=== PATIENT | male | born 1960 | race Caucasian/White ===

== ENCOUNTER 2024-12-24 12:17 | Emergency (ER) | payer MEDICARE, BC ==
[~2024-12-24] VITALS: Ht 188 cm; Wt 124.3 kg
[2024-12-24 12:27] VITALS: BP 179/104; PULSE 97; RESP 16; TEMP 98.2; O2SAT 98
[2024-12-24 13:03] LABS: BASOPHILS # (AUTO) 0.1 X10'3 (0-0.2); BASOPHILS % (AUTO) 0.7 % (0-1); EOSINOPHILS # (AUTO) 0.4 X10'3 (0-0.9); EOSINOPHILS % (AUTO) 4.8 % (0-6); HEMATOCRIT 44.8 % (42.0-52.0); HEMOGLOBIN 15.3 g/dl (14.0-17.9); LYMPHOCYTES # (AUTO) 3.2 X10'3 (1.1-4.8); LYMPHOCYTES % (AUTO) 43.3 % (21-51); MEAN CORPUSCULAR HEMOGLOBIN 31.2 PG (27.0-31.0); MEAN CORPUSCULAR HGB CONC 34.2 g/dL (33.0-36.5); MEAN CORPUSCULAR VOLUME 91.5 FL (78-98); MEAN PLATELET VOLUME 9.6 FL (7.4-10.4); MONOCYTES # (AUTO) 0.6 X10'3 (0-0.9); MONOCYTES % (AUTO) 8.1 % (2-12); NEUTROPHILS # (AUTO) 3.2 X10'3 (1.8-7.7); NEUTROPHILS % (AUTO) 43.1 % (42-75); PLATELET COUNT 164 X10'3 (140-440); RED BLOOD COUNT 4.89 X10'6 (4.70-6.10); RED CELL DISTRIBUTION WIDTH 13.8 % (11.5-14.5); WHITE BLOOD COUNT 7.4 X10'3 (4.5-11.0)
[2024-12-24 13:19] LABS: ALANINE AMINOTRANSFERASE 52 U/L (12-78); ALBUMIN 4.5 G/DL (3.4-5.0); ALBUMIN/GLOBULIN RATIO 1.3 (1.1-1.5); ALKALINE PHOSPHATASE 89 IU/L (46-116); ANION GAP 7 (8-16); ASPARTATE AMINO TRANSFERASE 27 U/L (10-37); BILIRUBIN,TOTAL 0.6 MG/DL (0.1-1.0); BLOOD UREA NITROGEN 15 MG/DL (7-18); BUN/CREATININE RATIO 19.2 (10.0-20.0); CALCIUM 9.1 MG/DL (8.5-10.1); CHLORIDE 106 MMOL/L (99-107); CREATININE 0.78 MG/DL (0.60-1.10); GLUCOSE 99 MG/DL (70-104); POTASSIUM 4.2 MMOL/L (3.5-5.1); SODIUM 140 MMOL/L (135-145); TOTAL CARBON DIOXIDE 26.6 MMOL/L (24-32); TOTAL PROTEIN 7.9 G/DL (6.4-8.2); eCRCL 113 ML/MIN; eGFR > 90 ML/MIN
[2024-12-24 13:26] LABS: PRO BRAIN NATRIURETIC PEPTIDE 47 PG/ML (0-125)
[2024-12-24] MEDS: dexamethasone sod phosphate 10mg/ml inj IM STA (16:49)
== END 2024-12-24 17:10 | disposition home or self-care (01) ==
LOC: ER 12:18
DX: J44.1 Chronic obstructive pulmonary disease with (acute) exacerbation (principal)
CPT/HCPCS: 36415; 71045; 80053; 83880; 84484; 85025; 93005; 96372; 99285; J1100

== ENCOUNTER 2025-04-09 10:01 | Outpatient (CLI) | payer MEDICARE, BC ==
[2025-04-09 10:50] LABS: BASOPHILS % (AUTO) 0.5 % (0-1); EOSINOPHILS # (AUTO) 0.4 X10'3 (0-0.9); EOSINOPHILS % (AUTO) 5.8 % (0-6); HEMATOCRIT 42.4 % (42.0-52.0); HEMOGLOBIN 14.5 g/dl (14.0-17.9); LYMPHOCYTES # (AUTO) 2.9 X10'3 (1.1-4.8); LYMPHOCYTES % (AUTO) 40.6 % (21-51); MEAN CORPUSCULAR HEMOGLOBIN 31.1 PG (27.0-31.0); MEAN CORPUSCULAR HGB CONC 34.3 g/dL (33.0-36.5); MEAN CORPUSCULAR VOLUME 90.8 FL (78-98); MEAN PLATELET VOLUME 8.7 FL (7.4-10.4); MONOCYTES # (AUTO) 0.6 X10'3 (0-0.9); MONOCYTES % (AUTO) 8.2 % (2-12); NEUTROPHILS # (AUTO) 3.2 X10'3 (1.8-7.7); NEUTROPHILS % (AUTO) 44.9 % (42-75); PLATELET COUNT 151 X10'3 (140-440); RED BLOOD COUNT 4.66 X10'6 (4.70-6.10); RED CELL DISTRIBUTION WIDTH 14.4 % (11.5-14.5); WHITE BLOOD COUNT 7.2 X10'3 (4.5-11.0)
--- NOTE | 2025-04-09 13:16 | RADIOLOGY REPORT ---
CLINICAL INDICATION: PAIN IN RIGHT FINGERS TECHNIQUE: DI HAND, COMPLETE (3VW MIN) Comparison: None FINDINGS/IMPRESSION: : There is no evidence of acute fracture or dislocation. Soft tissues are unremarkable. Diffuse degenerative changes of the distal interphalangeal joints and 1st CMC.
--- NOTE | 2025-04-09 13:17 | RADIOLOGY REPORT ---
CLINICAL INDICATION: PAIN IN LEFT FINGERS TECHNIQUE: Left DI HAND, COMPLETE (3VW MIN) Comparison: None FINDINGS/IMPRESSION: : There is no evidence of acute fracture or dislocation. Soft tissues are unremarkable. Degenerative changes of the 1st CMC.
== END 2025-04-09 23:59 | disposition home or self-care (01) ==
LOC: RAD 10:01
PROVIDERS: ATTEND Nurse Practitioner Family
DX: M18.0 Bilateral primary osteoarthritis of first carpometacarpal joints (principal); M79.644 Pain in right finger(s); M79.645 Pain in left finger(s); R51.9 Headache, unspecified
CPT/HCPCS: 36415; 73130; 85025; 85651

== ENCOUNTER 2025-04-13 14:28 | Outpatient (CLI) | payer MEDICARE, BC ==
--- NOTE | 2025-04-13 16:25 | RADIOLOGY REPORT ---
PROCEDURE: MR MRI HEAD INDICATION: HEADACHE, UNSPECIFIED EXAM DATE: 04/13/2025 02:34 PM COMPARISON: None TECHNIQUE: MRI of the brain without intravenous contrast. FINDINGS: Diffusion weighted images of the brain demonstrate no evidence of acute infarction. There is no evidence of acute intracranial hemorrhage, extra-axial collection, mass effect, midline s hift, or herniation. Asymmetry of the lateral ventricles with the right ventricle slightly dilated compared to the left. P ossible arachnoid cyst in the anterior horn of the right lateral ventricle. Pecg-pv-[id number] changes of chronic microvascular ischemic disease. There are no signal abnormalities on the susceptibility weighted sequences. The major vascular flow voids are present. Bilateral ethmoid and maxillary sinus disease. The surrounding soft tissues and osseous structures a re unremarkable. IMPRESSION: 1. No evidence of acute infarction, intracranial hemorrhage, or mass effect. Mild asymmetry of the la teral ventricles with a possible arachnoid cyst in the anterior horn of the right lateral ventricle. Kftj-bu-zsiljnks changes of chronic microvascular ischemic disease. Bilateral ethmoid and maxillary sinusitis. HS:Y
== END 2025-04-13 23:59 | disposition home or self-care (01) ==
LOC: MRI02 14:28
PROVIDERS: ATTEND Nurse Practitioner Family
DX: I67.82 Cerebral ischemia (principal); J32.0 Chronic maxillary sinusitis; R51.9 Headache, unspecified; J32.2 Chronic ethmoidal sinusitis
CPT/HCPCS: 70551

== ENCOUNTER 2025-05-18 10:32 | Emergency (ER) | payer MEDICARE, BC ==
[~2025-05-18] VITALS: Ht 188 cm; Wt 117.9 kg
--- NOTE | 2025-05-18 10:39 | ELECTROCARDIOGRAPH REPORT ---
[facility] Test Date: 2025-05-18 Test Time: 10:35:48 Pat Name: ALEXANDER MOISE Department: EMERGENCY ROOM Room: Gender: M Rn Diabetes: : 1960 Requested By: JAYSON MULLEN Order Number: [id number] Reading MD: Dr. Soto Elias Measurements Intervals [place] Rate: 99 P: 57 WI: 141 QRS: 63 QRSD: 132 T: 1 QT: 347 QTc: 446 Interpretive Statements Sinus tachycardia Right bundle branch block Inferior infarct, old Anterolateral infarct, recent Baseline wander in lead(s) V1 Electronically Signed On 05-18-2025 18:34:[address] Soto Elias Please click the below link to view image of tracing.
[2025-05-18 10:54] LABS: MEAN PLATELET VOLUME 9.0 FL (7.4-10.4); RED CELL DISTRIBUTION WIDTH 13.7 % (11.5-14.5)
--- NOTE | 2025-05-18 11:04 | RADIOLOGY REPORT ---
EXAM: DI CHEST,SINGLE VIEW HISTORY: CP COMPARISON: DI CHEST,SINGLE VIEW on DOS: 12/24/24 TECHNIQUE: Portable upright AP view of the chest was performed. FINDINGS: No pneumothorax, consolidative infiltrates, or pulmonary edema. The heart is not enlarged. There is t horacic spondylosis. IMPRESSION: No acute intrathoracic process.
[2025-05-18 11:14] LABS: CREATININE 0.81 MG/DL (0.60-1.10); TOTAL CARBON DIOXIDE 28.9 MMOL/L (24-32); eCRCL 109 ML/MIN; eGFR > 90 ML/MIN
--- NOTE | 2025-05-18 11:19 | Physician Documentation ---
History of Present Illness ~ Chief Complaint: Chest Pain Stated Complaint: CP Time Seen by MD: 10:56 Primary Medical Doctor: CLARICE Ramos; Sam(lungs) Source: patient, family Mode of Arrival: POV, Ambulatory Exam Limitations: no limitations HPI Patient in with central chest pressure over the past week. Worse with standing. If he walks he does feel short of breath. He has never had this before. A few weeks ago he was diagnosed with an enlarged heart. Does not take a diuretic. Does have a history of COPD. 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 Was a smoker in his 20s but quit that. No alcohol or drugs. He does have a follow up with Cardiology in about a week and he will be getting a stress test. No vomiting or diaphoresis. Pain is 9 or 10 out of its worst. While sitting here in the ER it is a 4. His take a daily baby aspirin. Medication Reconciliation Allergies: Coded Allergies: No Known Allergies (Unverified , 12/24/24) Review of Systems All Other Systems at this time: Reviewed and Negative Physical Exam Vital Signs: Temperature: 98.3, Source: Temporal, Heart Rate: 93, Respiratory Rate: 15, BP: 136/82, Pulse Oximetry: 96, Weight: 117.900 Oxygen Flow Rate: 0 General Appearance: alert, WD/WN Neck: normal inspection, full range of motion Respiratory: lungs clear, normal breath sounds, no respiratory distress Chest: no accessory muscle use Cardiovascular: regular rate, rhythm, no edema, no JVD, no murmur Gastrointestinal: normal palpation, non-tender Extremities: normal inspection, no calf tenderness Neurologic: oriented x4, memory intact Psychiatric: normal mood/affect Skin: normal color, warm/dry Progress Progress Note Patient who rested comfortably in the ED after aspirin and nitroglycerin. Workup unremarkable. Normal CBC, chemistry and troponin x2. EKG and chest x- ray unremarkable. Independently reviewed by me. Etiology unclear but patient does have follow up with Cardiology. Discharging home in good condition. He is to return here if new or worsening symptoms prior to follow-up. Results/Orders Results/Orders Orders - JAYSON MULLEN MD Chest,Single View (05/18/25 10:37) Monitor (05/18/25 10:37) Saline Lock (05/18/25 10:37) Oxygen (05/18/25 10:37) Hs Troponin I W Calculations (05/18/25 13:37) Nitroglycerin Sublingual Tab (Nitrostat (05/18/25 11:20) Completed Orders - JAYSON MULLEN MD Chest,Single View (05/18/25 10:37) Cbc/Diff (05/18/25 10:37) PBNP (05/18/25 10:37) Electrocardiogram (05/18/25 10:37) Hs Troponin I W Calculations (05/18/25 10:37) Hs Troponin I W Calculations (05/18/25 12:37) CMP (05/18/25 10:37) Aspirin 81mg Chew Tablet (Aspirin 81mg C (05/18/25 11:20) Medications Received in ER Medications (Trade) Dose Ordered Sig/Richard Route PRN Reason Start Time Stop Time Status Last Admin Dose Admin (aspirin 81MG chew tablet) 243 mg ONCE ONCE PO 05/18/25 11:20 05/18/25 11:21 DC 05/18/25 11:31 243 MG (Nitrostat SL tablet) 0.4 mg Q5MIN PRN SL chest pain 05/18/25 11:20 05/18/25 11:33 0.4 MG Vital Signs 05/18/25 05/18/25 05/18/25 05/18/25 10:39 10:47 11:04 11:35 Temp 98.3 98.3 Pulse 101 93 98 Resp 18 12 15 15 B/P (MAP) 130/81 136/82 (100) 131/81 (98) Pulse Ox 97 96 16 O2 Flow Rate 0 0 0 Laboratory Tests Test 05/18/25 10:37 05/18/25 12:24 White Blood Count 7.6 Red Blood Count 4.76 Hemoglobin 14.6 Hematocrit 43.0 Mean Corpuscular Volume 90.3 Mean Corpuscular Hemoglobin 30.7 Mean Corpuscular Hemoglobin Concent 34.0 Red Cell Distribution Width 13.7 Platelet Count 157 Mean Platelet Volume 9.0 Neutrophils (%) (Auto) 55.4 Lymphocytes (%) (Auto) 26.6 Monocytes (%) (Auto) 12.4 H Eosinophils (%) (Auto) 4.9 Basophils (%) (Auto) 0.7 Neutrophils # (Auto) 4.2 Lymphocytes # (Auto) 2.0 Monocytes # (Auto) 0.9 Eosinophils # (Auto) 0.4 Basophils # (Auto) 0.1 CBC Comment Sodium Level 138 Potassium Level 4.0 Chloride Level 106 Carbon Dioxide Level 28.9 Anion Gap 3 L Blood Urea Nitrogen 10 Creatinine 0.81 Estimated GFR/1.73 m2 > 90 BUN/Creatinine Ratio 12.3 Glucose Level 71 Calcium Level 9.0 Total Bilirubin 0.6 Aspartate Amino Transf (AST/SGOT) 23 Alanine Aminotransferase (ALT/SGPT) 38 Alkaline Phosphatase 80 Troponin I High Sensitivity 7 9 Pro-B-Type Natriuretic Peptide 57 Total Protein 7.6 Albumin 4.0 Globulin 3.6 Albumin/Globulin Ratio 1.1 Chemistry Comments Troponin I High Sens Percent Delta 28 Troponin I Hi Sens Absolute Change 2 Medical Decision Making Additional Information Differential includes but is not limited to: Myocardial infarction, GERD, gastritis, dissection, pneumothorax, tamponade, pneumonia, pleurisy, costochondritis, anxiety Departure Impression: Primary Impression: Chest pain Qualified Codes: R07.9 - Chest pain, unspecified Condition: Stable Discharge Instructions: Nonspecific Chest Pain, Adult Additional Instructions: Keep your follow up with Cardiology. Return here if new or worsening symptoms prior follow up. Referrals: NO PRIMARY CARE PROVIDER (PCP) Education Educated: Patient Educated regarding: diagnosis, treatment, need for follow up Signature Scribe Signature: No scribe used Attestation: No scribe used JAYSON MULLEN MD May 18, 2025 11:19
[2025-05-18 11:20] LABS: PRO BRAIN NATRIURETIC PEPTIDE 57 PG/ML (0-125)
[2025-05-18 17:20] VITALS: BP 134/88; PULSE 90; RESP 12; TEMP 98.3; O2SAT 97
== END 2025-05-18 13:25 | disposition home or self-care (01) ==
LOC: ER 10:32
DX: R07.89 Other chest pain (principal); J44.9 Chronic obstructive pulmonary disease, unspecified; Z87.891 Personal history of nicotine dependence
CPT/HCPCS: 36415; 71045; 80053; 83880; 84484; 85025; 93005; 99285

== ENCOUNTER 2025-07-06 05:44 | Day surgery (SDC) | payer MEDICARE, BC ==
[~2025-07-06] VITALS: Ht 188 cm; Wt 117.4 kg
[2025-07-06] VITALS (10 sets, daily range): BP systolic 127–153; BP diastolic 65–93; PULSE 78–88; RESP 10–18; TEMP 97.7; O2SAT 90–98
[2025-07-06] MEDS: ceFAZolin 2gm/dext,iso 50mL 50 ML IV ONE (05:30)
[2025-07-06] MEDS: tranexamic acid 1gm/0.7% sal. 100 ML IV ONE (05:30)
[~2025-07-06 05:44] MED LIST: ALBU8HFA IH; ALLO300T8 PO; ATOR-2 PO; FLUT12AE4 INH; MONT-40 PO; NORT50CA PO; PREG75CA76 PO; TIRZ5PEN SQ
[2025-07-06] MEDS: ringers solution, lacted 1,000 ML IV SCH (06:42)
[2025-07-06] MEDS ORDERED: methylPREDNISolone acetate 80mg/ml inj**IM only ONE (06:42)
[2025-07-06] MEDS ORDERED: cocaine 4% topical solution 4ml bottle ONE (06:42)
[2025-07-06] MEDS ORDERED: BUPIVAcaine/PF 5 mg/ml 10ml ONE (06:43)
[2025-07-06] MEDS ORDERED: LIDOcaine 1% W/epiNEPHrine 1:100,000 20ml vial ONE (06:43)
[2025-07-06] MEDS ORDERED: epiNEPHrine 1 mg/ml 30ml MDV ONE (06:43)
[2025-07-06] MEDS: oxymetazoline 15 ML nasal spray NS ONE (07:41)
[2025-07-06] MEDS ORDERED: acetaminophen 1,000mg/100ml IV 0 ML IV ONE (07:47)
[2025-07-06] MEDS ORDERED: LIDOcaine 1%/PF 5ML 10 MG/ML VIAL ONE (07:47)
[2025-07-06] MEDS ORDERED: fentaNYL/PF 50MCG/1 ML 2ML syringe ONE (07:47)
[2025-07-06] MEDS ORDERED: propofol inj 20 ML IV ONE (07:47)
[2025-07-06] MEDS ORDERED: dexamethasone sod phosphate 4mg/ml inj. ONE (07:47)
[2025-07-06] MEDS ORDERED: ondansetron/PF 4mg/2ml inj ONE (07:47)
[2025-07-06] MEDS ORDERED: rocuronium 10mg/ml inj IV ONE (08:33)
[2025-07-06] MEDS ORDERED: glycopyrrolate 0.2mg/ml inj ONE (09:48)
[2025-07-06] MEDS ORDERED: acetaminophen 1,000mg/100ml IV 100 ML IV ONE (11:51)
[2025-07-06] MEDS ORDERED: morphine 4 MG/ML inj SYRINge IV PRN ×2 (12:05→12:10)
[2025-07-06] MEDS ORDERED: fentaNYL/PF 50MCG/1 ML 2ML syringe IV PRN ×2 (12:10)
[2025-07-06] MEDS ORDERED: labetalol 20mg/4ml (5mg/ml) syringe IV PRN (12:10)
[2025-07-06] MEDS ORDERED: hydrALAZINE 20mg/ml inj. IV PRN (12:10)
[2025-07-06] MEDS ORDERED: ondansetron/PF 4mg/2ml inj IV PRN (12:10)
[2025-07-06] MEDS ORDERED: ringers solution, lacted 1,000 ML IV SCH (12:10)
[2025-07-06] MEDS: morphine 4 MG/ML inj SYRINge IV PRN (12:29)
--- NOTE | 2025-07-06 14:17 | OPERATIVE REPORT ---
DATE OF SURGERY: 07/06/2025 DICTATING PHYSICIAN: Bharat Cavanaugh MD PREOPERATIVE DIAGNOSES: * Deviated nasal septum. * Hypertrophic right and left inferior turbinates. * Hammad bullosa left middle turbinate. * Chronic rhinosinusitis with pansinus polyposis. * Sleep apnea with elongate uvula and dysphagia secondary to elongate uvula. POSTOPERATIVE DIAGNOSES: * Deviated nasal septum. * Hypertrophic right and left inferior turbinates. * Hammad bullosa left middle turbinate. * Chronic rhinosinusitis with pansinus polyposis. * Sleep apnea with elongate uvula and dysphagia secondary to elongate uvula. PROCEDURES: * Septoplasty. * Submucous resection, right and left inferior turbinates. * Nasal endoscopy surgical with left hammad bullosa excision. * Nasal endoscopy surgical with right and left frontal sinusotomy with removal of polyps. * Nasal endoscopy surgical with right and left total ethmoidectomy with removal of polyps. * Nasal endoscopy surgical with right and left middle meatal maxillary antrostomy with removal of polyps. * Nasal endoscopy surgical with left and right sphenoid sinusotomy with removal of polyps. * Stereotactic computer-assisted navigational procedure, extracranial. * Partial resection of elongate uvula. SURGEON: Bharat Cavanaugh MD ANESTHESIA: General endotracheal, Dr. Dubois. HISTORY: The patient is a 64-year-old male with severe nasal airway obstruction for years along with intermittent purulent rhinorrhea, facial pain and pressure, and thick postnasal drainage. In addition, the patient has constant dysphagia and sleep apnea. On physical examination, the septum was widely deviated to the right touching the right inferior turbinate. Bilateral nasal polyposis was visible. CT scan confirmed pansinus polyposis. In addition, on physical examination, the patient had an elongate uvula, estimated to be double the normal length. On the basis of the above findings, I felt the patient had deviated nasal septum, hypertrophic turbinates, chronic rhinosinusitis with pansinus polyposis, and an elongate uvula creating a combination of dysphagia and sleep apnea. The risks, alternatives, and benefits of surgery were explained to the patient and accepted. DESCRIPTION OF PROCEDURE: The patient was brought to the operating room, given a general endotracheal anesthesia, and prepped and draped in the usual fashion. A Kassy mouth gag was placed retracting the endotracheal tube in the groove of the tongue blade and exposing the entire oropharynx, which revealed an elongate uvula. This was partially resected using needle-tip Bovie. There was no bleeding. The MacIver mouth gag was removed. The patient was then placed in the 30-degree head-up position. A 1% Xylocaine with 100,000 epinephrine was infiltrated into the planned surgical sites utilizing headlight and endoscope. Image-guided system was attached to the patient and calibration and verification satisfactorily accomplished. The reason we had chosen to carry out this procedure under image guidance was the presence of polyposis along the base of the skull and lamina papyracea bilaterally. The first procedure to be carried out intranasally was the septoplasty. A caudal incision was created on the right hand side and the mucoperichondrial mucoperiosteal flap elevated. A Posen knife was used to transect the quadrilateral cartilage just caudal to the most caudal deflection and a mucoperichondrial mucoperiosteal flap elevated off the contralateral side and the deviated portions of quadrilateral cartilage, perpendicular plate of the ethmoid, vomer, and maxillary crests were removed. The septal leaves were coapted in the midline using fibrin glue and 4-0 chromic on a P3 needle, which was also used to close the caudal incision. This yielded a midline septum. We then turned our attention to the inferior turbinates, which underwent submucosal resection using a microshaver technique by elevating a medial flap bilaterally and then microshaving away the undersurface of the flap to remove the hypertrophic submucosal stroma. This was carried out bilaterally. Next, we turned our attention to the left-sided sinuses. First we turned our attention to the left middle turbinate, which had undergone hammad bullosa formation and within the hammad bullosa, there was an opacification which turned out after removal of the lateral lamella to be a polyp within the hammad bullosa. Next, we carried out a left middle meatal maxillary antrostomy. The uncinate process had already been removed at a prior surgery. We entered the maxillary sinus through the medial wall and enlarged this opening in continuity with the natural ostium and found the sinus to be completely filled with polyps, pus, and what appeared to be inspissated mucus, most probably allergic mucin. All of this was completely cleaned from the left maxillary sinus. We turned our attention to the left ethmoid. The patient underwent an anterior and posterior ethmoidectomy dissecting superior to the roof of the ethmoid and laterally to the lamina papyracea. At no time was the roof of the ethmoid or lamina papyracea penetrated. We continued dissecting in a posterior fashion reaching the face of the sphenoid. Polyps were removed from the sphenoethmoidal recess. We removed the polyp emanating from the sphenoid ostium and followed this into the sphenoid and removed polyps and allergic mucin. On this side, we ended this portion of the procedure by carrying out a left frontal sinusotomy following the polyps up into the frontal sinus and removing them with giraffe forceps. Cottonoids were placed on the left. We then turned our attention to the right. We carried out a right frontal sinusotomy with removal of polyps, right total ethmoidectomy with removal of polyps, right maxillary sinusotomy with removal of polyps, and right sphenoidotomy with removal of polyps, utilizing the same techniques as described above, having encountered the same findings, namely pansinus polyposis with mucopus and allergic mucin. The only difference on this side was there was no hammad bullosa and in fact the middle turbinate had been almost completely resected. At the end of these procedures, hemostasis was intact. Bactroban water-soluble ointment was used to fill the right and left maxillary sinus. The ethmoid cavities were filled with PosiSep. The PosiSep was soaked with thrombin. Two cottonoids were placed in each nasal cavity for pressure hemostasis. These will be removed in the recovery room leaving the patient unpacked. The patient tolerated the procedure well with accompaniment of a minimal blood loss. Bharat Cavanaugh MD TID: [id number] RECEIPT: [id number] KAREEM/JOSHUA/LOIDA cc: Waldo Baez RN, [employer]
--- NOTE | 2025-07-07 15:03 | PATHOLOGY REPORT ---
[facility] [address] [place] [address] SURGICAL PATHOLOGY REPORT CaseNumber: [id number] Surgeon:Bharat Cavanaugh PA-C CLINICAL INFORMATION CLINICAL INFORMATION: Deviated septum, hypertrophy. DIAGNOSIS DIAGNOSIS: A.UVULA; RESECTION - BENIGN SQUAMOUS MUCOSA. DIAGNOSIS: B.SEPTAL FRAGMENTS; SEPTOPLASTY - FRAGMENTS OF BONE AND CARTILAGE, GROSSLY DESCRIBED. DIAGNOSIS: C.SINUS AND TURBINATES, LEFT; RESECTION - SINONASAL MUCOSA WITH MILD CHRONIC INFLAMMATION. - MUCOSAL EOSINOPHILS ARE FOCALLY INCREASED, UP TP 100 IN ONE HIGH POWER FIELD. - NO ALLERGIC MUCIN. - NO FUNGAL ELEMENTS. DIAGNOSIS: D.SINUS AND TURBINATES, RIGHT; RESECTION - SINONASAL MUCOSA WITH MODERATE CHRONIC INFLAMMATION. - MUCOSAL EOSINOPHILS ARE INCREASED, UP TP 100 IN ONE HIGH POWER FIELD. - NO ALLERGIC MUCIN. - NO FUNGAL ELEMENTS. DIAGNOSIS: E.SINUS, MAXILLARY AND SPHENOID, LEFT; RESECTION - MUCIN, EOSINOPHILS, AND NECROINFLAMMATORY DEBRIS. - SCATTERED FUNGAL ELEMENTS. MICROSCOPIC DESCRIPTION A. UVULA MICROSCOPIC DESCRIPTION: 1 H&E-stained section is examined. It shows multiple sections of benign squamous mucosa with numerous minor salivary glands embedded in loose bundles of skeletal muscle. B. SEPTAL FRAGMENTS MICROSCOPIC DESCRIPTION: Not performed. C. SINUS AND TURBINATES, LEFT MICROSCOPIC DESCRIPTION: 3 H&E-stained slides are examined. They show fragments of sinonasal mucosa intermixed with bone and cartilage. The mucosa shows patchy chronic inflammation composed of lymphocytes and plasma cells. There is mild submucosal edema. There is no evidence of dysplasia or significant acute inflammation. I do not see eosinophilic mucin or fungal organisms. There are patchy areas of increased mucosal eosinophils (greater than 100 in 1 high- powered field). D. SINUS AND TURBINATES, RIGHT MICROSCOPIC DESCRIPTION: 3 H&E-stained slides are examined. They show sections of sinonasal mucosa with moderate chronic inflammation, intermixed with bone and cartilage. The background shows mucin and fibrin. Allergic mucin is not identified. Submucosal edema is increased. Mucosal eosinophils are present, up with patchy areas showing sheets eosinophils measuring more than 100 in 1 high- power field. E. SINUS, MAXILLARY AND SPHENOID, LEFT MICROSCOPIC DESCRIPTION: 2 H&E-stained slides are examined. They show abundant mucin intermixed with sheets of eosinophils and necroinflammatory debris. Scattered fragments of fungal elements are present. GROSS DESCRIPTION A. UVULA GROSS DESCRIPTION: Received in formalin labeled with the patient's name, number, and "elogate uvula" is a piece of pink-carrillo tissue which measures 1.8 cm long by 0.8 cm in diameter. The specimen is trisected and entirely submitted as A1. The time at which the specimen was removed was 0848. The time at which the specimen was placed in formalin was 0850. (meb) B. SEPTAL FRAGMENTS GROSS DESCRIPTION: Received in a container of formalin labeled with the patient's name, number, and "septal fragments" is a 4.5 cm aggregate of irregularly shaped pieces of flat bone and associated cartilage. A discrete mass lesion is not identified. No sections. (meb) C. SINUS AND TURBINATES, LEFT GROSS DESCRIPTION: Received in a container of formalin labeled with the patient's name, number, and "left sinus and turbinates" is a 3.5 cm aggregate of irregularly shaped pieces of bone and pink-carrillo to carrillo soft tissue. The specimen is decalcified and entirely submitted as C1-C3. The time at which the specimen was removed was 0848. The time at which the specimen was placed in formalin was 0850. (meb) D. SINUS AND TURBINATES, RIGHT GROSS DESCRIPTION: Received in a container of formalin labeled with the patient's name, number, and "right sinus and turbinates" is a 3.5 cm aggregate of irregularly shaped pieces of bone and pink-carrillo to carrillo soft tissue. The specimen is decalcified and entirely submitted as D1-D3. The time at which the specimen was removed was 0848. The time at which the specimen was placed in formalin was 0850. E. SINUS, MAXILLARY AND SPHENOID, LEFT GROSS DESCRIPTION: Received in a container of formalin labeled with the patient's name, number, and "left maxillary sinus debris" is a 4 cm aggregate of irregularly shaped pieces of pink-carrillo to carrillo soft tissue. The specimen is entirely submitted as E1-E2. The time at which the specimen was removed was 0848. The time at which the specimen was placed in formalin was 0850. Electronically signed by: Reji Johnson, 07/07/2025 2:22:00 PM
== END 2025-07-06 13:06 | disposition home or self-care (01) ==
LOC: PAS 05:44
PROVIDERS: ATTEND Otolaryngology
DX: J34.2 Deviated nasal septum (principal); J34.3 Hypertrophy of nasal turbinates; J32.9 Chronic sinusitis, unspecified; J33.9 Nasal polyp, unspecified; E78.5 Hyperlipidemia, unspecified; J43.9 Emphysema, unspecified; F41.9 Anxiety disorder, unspecified; G47.33 Obstructive sleep apnea (adult) (pediatric); M10.9 Gout, unspecified; Z86.73 Personal history of transient ischemic attack (TIA), and cerebral infarction without residual deficits; Z79.899 Other long term (current) drug therapy; Z98.890 Other specified postprocedural states
CPT/HCPCS: 30140; 30520; 31240; 31259; 31267; 31276; 42140; 61782; 82948; 87070; 87075; A4618; A6402; A7000; J0131; J0169; J0665; J1100; J2270; J2405; J2704; J2710; J3010; J3490; J7030; J7040; J7120; Z7506; Z7508; Z7512; Z7610; A6449; J1010